=== PATIENT | female | born 1985 | race Caucasian/White ===

== ENCOUNTER 2023-08-02 13:54 | Emergency (ER) | payer SELFPAY ==
[2023-08-02] MEDS: Ibuprofen 800 MG Tab PO ONE (14:59)
[2023-08-02 15:43] LABS: CORONAVIRUS COVID-19 NAA NEGATIVE (NEGATIVE); INFLUENZA A NAA NEGATIVE (NEGATIVE); INFLUENZA B NAA NEGATIVE (NEGATIVE)
[2023-08-02] MEDS: Ondansetron 4 MG Tab.DIS PO ONE (16:03)
== END 2023-08-02 16:21 | disposition home or self-care (01) ==
LOC: MW.ED 13:54
DX: B34.9 Viral infection, unspecified (principal)
CPT/HCPCS: 0240U; 87651; 99283; A9270